=== PATIENT | female | born 1985 | race Caucasian/White ===

== ENCOUNTER 2017-07-12 08:34 | Outpatient (CLI) | payer MEDICAID | END 2017-07-12 09:40 | disposition home or self-care (01) | LOC: OBT 08:34 → L-D 08:35 → OBT 09:40 | DX: O99.512 Diseases of the respiratory system complicating pregnancy, second trimester (principal); R09.89 Other specified symptoms and signs involving the circulatory and respiratory systems; Z3A.25 25 weeks gestation of pregnancy | CPT/HCPCS: Z7500 ==

== ENCOUNTER 2017-07-12 09:54 | Emergency (ER) | payer MEDICAID | END 2017-07-12 10:39 | disposition home or self-care (01) | LOC: FTE 09:54 → E/R 10:39 | DX: O99.512 Diseases of the respiratory system complicating pregnancy, second trimester (principal); J06.9 Acute upper respiratory infection, unspecified; Z3A.25 25 weeks gestation of pregnancy | CPT/HCPCS: 99284; Z7502 ==

== ENCOUNTER 2017-10-03 17:09 | Outpatient (CLI) | payer MEDICAID | END 2017-10-03 19:34 | disposition home or self-care (01) | LOC: OBT 17:09 → L-D 17:10 → OBT 19:34 | DX: O42.92 Full-term premature rupture of membranes, unspecified as to length of time between rupture and onset of labor (principal); Z3A.37 37 weeks gestation of pregnancy | CPT/HCPCS: 76818 ==

== ENCOUNTER 2017-10-18 16:20 | Inpatient (IN) | payer MEDICAID ==
[2017-10-18 17:15] LABS: ADD MAN DIFF? NO
[2017-10-18 17:18] LABS: WHITE BLOOD COUNT 9.4 10^3/ul (4.8-10.8)
[2017-10-18 17:18] LABS: BASOPHILS % 0.2 % (0.0-2.0); EOSINOPHILS % 0.3 % (0.0-7.0); HEMATOCRIT 34.4 % (37.0-47.0); HEMOGLOBIN 11.8 g/dl (12.0-16.0); LYMPHOCYTES # 2.1 10^3/ul (0.8-2.9); LYMPHOCYTES % 22.6 % (15.0-51.0); MEAN CORPUSCULAR HEMOGLOBIN 32.2 pg (29.0-33.0); MEAN CORPUSCULAR HGB CONC 34.3 g/dl (32.0-37.0); MEAN CORPUSCULAR VOLUME 93.7 fl (82.0-101.0); MEAN PLATELET VOLUME 11.6 fl (7.4-10.4); MONOCYTE # 0.7 10^3/ul (0.3-0.9); MONOCYTES % 7.7 % (0.0-11.0); NEUTROPHIL # 6.5 10^3/ul (1.6-7.5); NEUTROPHILS % 68.8 % (39.0-77.0); PLATELET COUNT 242 10^3/UL (140-415); RED BLOOD COUNT 3.67 10^6/ul (4.20-5.40); RED CELL DISTRIBUTION WIDTH 13.8 % (11.5-14.5)
[2017-10-18 17:41] LABS: ALANINE AMINOTRANSFERASE 21 IU/L (13-69); ALBUMIN 3.5 g/dl (3.3-4.9); ALBUMIN/GLOBULIN RATIO 1.09; ALKALINE PHOSPHATASE 108 IU/L (42-121); ANION GAP 11 (8-16); ASPARTATE AMINO TRANSFERASE 20 IU/L (15-46); BILIRUBIN,INDIRECT 0.6 mg/dl (0-1.1); BILIRUBIN,TOTAL 0.6 mg/dl (0.2-1.3); BLOOD UREA NITROGEN 11 mg/dl (7-20); CALCIUM 9.7 mg/dl (8.4-10.2); CARBON DIOXIDE 21 mmol/L (21-31); CHLORIDE 108 mmol/L (97-110); CREATININE 0.55 mg/dl (0.44-1.00); GLUCOSE 81 mg/dl (70-220); POTASSIUM 3.9 mmol/L (3.5-5.1); SODIUM 136 mmol/L (135-144); TOTAL PROTEIN 6.7 g/dl (6.1-8.1); URIC ACID 4.5 mg/dl (3.1-7.9)
[2017-10-18 18:08] LABS: ADD UMIC YES; UR ASCORBIC ACID NEGATIVE (NEGATIVE); UR BACTERIA MANY /HPF (NONE SEEN); UR BILIRUBIN (Dip) NEGATIVE (NEGATIVE); UR BLOOD (Dip) NEGATIVE (NEGATIVE); UR CLARITY SLIGHTLY CLOUDY (CLEAR); UR COLOR YELLOW (YELLOW); UR GLUCOSE (Dip) NEGATIVE (NEGATIVE); UR KETONES (Dip) NEGATIVE (NEGATIVE); UR LEUKOCYTE ESTERASE (Dip) 1+ Leu/ul (NEGATIVE); UR NITRITE (Dip) NEGATIVE (NEGATIVE); UR RBC 3 /HPF (0-5); UR SPECIFIC GRAVITY (Dip) 1.003 (1.003-1.030); UR SQUAMOUS EPITHELIAL CELL MODERATE /HPF (FEW); UR TOTAL PROTEIN (Dip) NEGATIVE (NEGATIVE); UR UROBILINOGEN (Dip) NEGATIVE (NEGATIVE); UR WBC 7 /HPF (0-5)
[2017-10-18] MEDS ORDERED: LIDOCAINE 1% (MPF) 30 ML INJ INJ (20:00)
[2017-10-18] MEDS ORDERED: MISOPROSTOL 200 MCG TAB PR (20:00)
[2017-10-18] MEDS ORDERED: IBUPROFEN 600 MG TAB PO (20:00)
[2017-10-18] MEDS ORDERED: OXYTOCIN 30 UNITS/LR 500 ML IV (20:00)
[2017-10-18] MEDS ORDERED: METHYLERGONOVINE 0.2 MG INJ IM (20:00)
[2017-10-18] MEDS ORDERED: BUTORPHANOL 1 MG INJ IV (20:00)
[2017-10-18] MEDS ORDERED: CARBOPROST 250 MCG INJ IM (20:00)
[2017-10-18] MEDS: LACTATED RINGER'S 1,000 ML IV ×2 (20:08→23:21)
[2017-10-18 20:34] LABS: ADD MAN DIFF? NO
[2017-10-18 20:38] LABS: BASOPHILS % 0.4 % (0.0-2.0); EOSINOPHILS % 0.4 % (0.0-7.0); HEMATOCRIT 34.9 % (37.0-47.0); LYMPHOCYTES # 2.3 10^3/ul (0.8-2.9); LYMPHOCYTES % 24.2 % (15.0-51.0); MEAN CORPUSCULAR HEMOGLOBIN 31.7 pg (29.0-33.0); MEAN CORPUSCULAR HGB CONC 34.4 g/dl (32.0-37.0); MEAN CORPUSCULAR VOLUME 92.3 fl (82.0-101.0); MEAN PLATELET VOLUME 11.6 fl (7.4-10.4); MONOCYTE # 0.6 10^3/ul (0.3-0.9); MONOCYTES % 6.4 % (0.0-11.0); NEUTROPHIL # 6.5 10^3/ul (1.6-7.5); NEUTROPHILS % 68.2 % (39.0-77.0); PLATELET COUNT 247 10^3/UL (140-415); RED BLOOD COUNT 3.78 10^6/ul (4.20-5.40); RED CELL DISTRIBUTION WIDTH 13.9 % (11.5-14.5)
[2017-10-18 20:38] LABS: WHITE BLOOD COUNT 9.6 10^3/ul (4.8-10.8)
[2017-10-18 21:02] LABS: INR 0.84; PROTIME 11.6 Sec (11.9-14.9); PT RATIO 0.9
[2017-10-18 21:03] LABS: PARTIAL THROMBOPLASTIN TIME 28.3 Sec (25.0-35.0)
[2017-10-18 21:27] LABS: HEPATITIS B SURFACE ANTIGEN NEGATIVE (NEGATIVE)
[2017-10-18] MEDS: MISOPROSTOL 25 MCG CAPSULE PO (23:18)
[2017-10-19] MEDS: MISOPROSTOL 25 MCG CAPSULE PO ×6 (03:18→21:24)
[2017-10-19] MEDS: LACTATED RINGER'S 1,000 ML IV ×2 (07:19→17:21)
[2017-10-19 15:00] LABS: RAPID PLASMA REAGIN NONREACTIVE (NR)
[2017-10-20] MEDS: LACTATED RINGER'S 1,000 ML IV ×4 (01:42→19:42)
[2017-10-20] MEDS: MISOPROSTOL 25 MCG CAPSULE PO ×2 (03:16→07:36)
[2017-10-20] MEDS: BUTORPHANOL 2 MG INJ IV (05:25)
[2017-10-20] MEDS: OXYTOCIN 30 UNITS/LR 500 ML IV ×3 (11:47→21:16)
[2017-10-20] MEDS ORDERED: FENTAnyl 2MCG/ML-ROPIV 0.2% 100 ML (15:25)
[2017-10-20] MEDS ORDERED: ONDANSETRON 4 MG INJ IV (15:30)
[2017-10-20] MEDS ORDERED: DIPHENHYDRAMINE 50 MG INJ IV (15:30)
[2017-10-20] MEDS ORDERED: FENTAnyl 2MCG/ML-ROPIV 0.2% 100 ML BAG EPI (15:30)
[2017-10-20] MEDS ORDERED: NALOXONE (0.4 MG/ML) INJ IV (15:30)
[2017-10-20] MEDS: MINERAL OIL LIGHT 10 ML VIAL TOP (21:12)
[2017-10-20] MEDS: HYDROCODONE/APAP (5/325) TAB PO (21:55)
[2017-10-21] MEDS: LACTATED RINGER'S 1,000 ML IV* ×2 (01:22→09:22)
[2017-10-21] MEDS ORDERED: ZOLPIDEM 5 MG TAB PO (01:30)
[2017-10-21] MEDS ORDERED: OXYTOCIN 30 UNITS/LR 500 ML IV (01:30)
[2017-10-21] MEDS ORDERED: LANOLIN 7 GM TUBE TOP (01:30)
[2017-10-21] MEDS ORDERED: DIPHENHYDRAMINE 50 MG INJ IV (01:30)
[2017-10-21] MEDS ORDERED: METHYLERGONOVINE 0.2 MG INJ IM (01:30)
[2017-10-21] MEDS ORDERED: ONDANSETRON 4 MG INJ IV (01:30)
[2017-10-21] MEDS ORDERED: CARBOPROST 250 MCG INJ IM (01:30)
[2017-10-21] MEDS ORDERED: DIBUCAINE 1% 30 GM OINT PR (01:30)
[2017-10-21] MEDS ORDERED: ACETAMINOPHEN 325 MG TAB PO (01:30)
[2017-10-21] MEDS ORDERED: MISOPROSTOL 200 MCG TAB PR (01:30)
[2017-10-21] MEDS ORDERED: SENNA/DOCUSATE NA (8.6MG/50MG) TAB PO (01:30)
[2017-10-21] MEDS: WITCH HAZEL/GLYCERIN PAD PR (02:54)
[2017-10-21] MEDS: BENZOCAINE 20% 56 ML SPRAY TOP (02:54)
[2017-10-21] MEDS: OXYCODONE/ASPIRIN (4.88/325) TAB PO (02:54)
[2017-10-21] MEDS: IBUPROFEN 600 MG TAB PO ×3 (05:31→17:41)
[2017-10-21 11:53] LABS: ADD MAN DIFF? NO
[2017-10-21 12:15] LABS: BASOPHILS % 0.2 % (0.0-2.0); EOSINOPHILS % 0.2 % (0.0-7.0); HEMATOCRIT 34.4 % (37.0-47.0); HEMOGLOBIN 11.7 g/dl (12.0-16.0); LYMPHOCYTES # 1.9 10^3/ul (0.8-2.9); MEAN CORPUSCULAR HEMOGLOBIN 32.4 pg (29.0-33.0); MEAN CORPUSCULAR VOLUME 95.3 fl (82.0-101.0); MEAN PLATELET VOLUME 11.9 fl (7.4-10.4); MONOCYTE # 0.8 10^3/ul (0.3-0.9); MONOCYTES % 6.6 % (0.0-11.0); NEUTROPHIL # 9.2 10^3/ul (1.6-7.5); NEUTROPHILS % 76.6 % (39.0-77.0); PLATELET COUNT 215 10^3/UL (140-415); RED BLOOD COUNT 3.61 10^6/ul (4.20-5.40); RED CELL DISTRIBUTION WIDTH 13.8 % (11.5-14.5)
[2017-10-21 12:15] LABS: WHITE BLOOD COUNT 12.1 10^3/ul (4.8-10.8)
[2017-10-22] MEDS: IBUPROFEN 600 MG TAB PO ×3 (00:14→11:50)
[2017-10-22] MEDS: MEASLES,MUMPS,RUBELLA VACCINE INJ SC* (09:00)
[2017-10-22] MEDS: DIPHTH/TET/ACEL PERTUSS (ADULT) 0.5 ML VIAL IM* (11:56)
== END 2017-10-22 15:27 | disposition home or self-care (01) | DRG 775 ==
LOC: OBT 16:20 → PP1 10-21 00:43 → L-D 16:20 → OBT 19:36 → L-D 19:36
PROC: 10E0XZZ Delivery of Products of Conception, External Approach (ICD-10-PCS; principal; 2017-10-20)
DX: O13.4 Gestational [pregnancy-induced] hypertension without significant proteinuria, complicating childbirth (principal); Z3A.39 39 weeks gestation of pregnancy; Z37.0 Single live birth
CPT/HCPCS: 62319; 76818; 80053; 81001; 84560; 85025; 85610; 85730; 86592; 86850; 86900; 86901; 87340; 90715; 99464